=== PATIENT | male | born 1965 | race Caucasian/White ===

== ENCOUNTER → 2019-07-29 | Outpatient (REF) ==
--- NOTE | 2019-07-29 16:59 | REP ---
Lumbar spine series: Three views: History: Degenerative disc disease. No comparison study. Findings: Lumbar vertebral body heights are preserved. There is no evidence of spondylolysis or spondylolisthesis. There is degenerative disc narrowing and discogenic spurring at each lumbar level as well as in the visualized lower thoracic spine levels. There is some osteoarthritic facet hypertrophy bilaterally L4-5 and at L5-S1. Psoas margins are symmetric. Sacrum and SI joints are intact. Some vascular calcifications noted. Impression: Diffuse degenerative disc disease. Osteoarthritic facet hypertrophy at L4-5 and L5-S1 bilaterally. Electronically Signed by Prashant Sarabia MD 07/29/2019 05:10 P
== END ==
LOC: M SMT 13:09
PROVIDERS: ATTEND Internal Medicine
DX: Z02.71 Encounter for disability determination (principal)